=== PATIENT | male | born 1940 | race American Indian/Alaskan Native ===

== ENCOUNTER 2017-11-03 11:44 | Inpatient (IN) | payer MEDICARE ==
[2017-11-03 13:11] LABS: Basophils % (Auto) 0.4 % (0.0-1.8); Eosinophils # (Auto) 0.1 K/mm3 (0.0-0.4); Eosinophils % (Auto) 0.9 % (0.0-4.3); Hemoglobin 13.6 gm/dl (11.8-15.2); Lymphocytes # (Auto) 1.8 K/mm3 (1.2-5.4); Lymphocytes % (Auto) 23.9 % (13.4-35.0); Mean Corpuscular HGB Conc 34 % (32-34); Mean Corpuscular Hemoglobin 31 pg (28-32); Mean Corpuscular Volume 91 fl (84-94); Monocytes # (Auto) 0.5 K/mm3 (0.0-0.8); Monocytes % (Auto) 6.8 % (0.0-7.3); Platelet Count 228 K/mm3 (140-440); Red Blood Count 4.42 M/mm3 (3.65-5.03); Red Cell Distribution Width 13.7 % (13.2-15.2)
[2017-11-03 13:20] LABS: BUN/Creatinine Ratio 16; Blood Urea Nitrogen 13 mg/dL (9-20); Calcium 8.3 mg/dL (8.4-10.2); Hemolysis Index 13
--- NOTE | 2017-11-03 15:11 | Emergency Department Report ---
ED Chest Pain HPI - General Chief Complaint: Chest Pain Stated Complaint: CHEST PAIN Time Seen by Provider: 11/03/17 14:45 Source: patient, EMS Mode of arrival: Stretcher Limitations: Other - History of Present Illness Initial Comments: According to the patient, he is having intermittent left-sided chest pain that is improving. He states this happens when he gets stressed. History of having a heart attack. According to chart review, patient is brought in by EMS after police Hold him over for speeding. While stopped by the police, patient started having chest pain. History is limited by the patient's poor hearing. Onset: during rest Pain Location: left chest Pain Radiation: none Quality: sharp Consistency: intermittent - Related Data Home Medications Medication Instructions Recorded Confirmed Last Taken No Known Home Medications [No 11/03/17 11/03/17 Unknown Reported Home Medications] Allergies Allergy/AdvReac Type Severity Reaction Status Date / Time No Known Allergies Allergy Unverified 11/03/17 12:19 Heart Score - HEART Score History: Moderately suspicious EKG: Non-specific Age: > 65 Risk factors: No known risk factors Troponin: < normal limit HEART Score: 4 ED Review of Systems ROS: Stated complaint: CHEST PAIN Other details as noted in HPI Constitutional: denies: chills, fever Eyes: denies: eye pain, eye discharge, vision change Respiratory: cough, SOB at rest. denies: shortness of breath, wheezing Cardiovascular: chest pain Gastrointestinal: denies: abdominal pain, nausea, diarrhea ED Past Medical Hx - Social History Smoking Status: Former Smoker - Medications Home Medications: Home Medications Medication Instructions Recorded Confirmed Last Taken Type No Known Home Medications [No 11/03/17 11/03/17 Unknown History Reported Home Medications] ED Physical Exam - General Limitations: Other (extremely hard of hearing) - Head Head exam: Present: atraumatic, normocephalic - Eye Eye exam: Present: normal appearance - Respiratory Respiratory exam: Present: normal lung sounds bilaterally. Absent: respiratory distress - Cardiovascular Cardiovascular Exam: Present: regular rate, normal rhythm. Absent: systolic murmur, diastolic murmur, rubs, gallop - GI/Abdominal GI/Abdominal exam: Present: soft, normal bowel sounds - Extremities Exam Extremities exam: Present: normal inspection - Neurological Exam Neurological exam: Present: alert, oriented X3 - Psychiatric Psychiatric exam: Present: normal affect, normal mood - Skin Skin exam: Present: warm, dry, intact, normal color ED Course Vital Signs 11/03/17 11/03/17 11/03/17 12:24 12:30 12:45 Temperature Pulse Rate 59 L 58 L 57 L Respiratory 18 13 18 Rate Blood Pressure 128/58 136/55 Blood Pressure [Left] O2 Sat by Pulse 98 97 98 Oximetry 11/03/17 11/03/17 11/03/17 13:01 13:06 13:07 Temperature 98.0 F Pulse Rate 69 Respiratory 12 18 Rate Blood Pressure 159/81 Blood Pressure [Left] O2 Sat by Pulse 97 98 Oximetry 11/03/17 11/03/17 11/03/17 13:15 13:31 13:45 Temperature Pulse Rate 60 58 L 58 L Respiratory 17 17 12 Rate Blood Pressure 128/58 128/58 159/81 Blood Pressure [Left] O2 Sat by Pulse 98 97 98 Oximetry 11/03/17 11/03/17 11/03/17 14:00 14:15 14:30 Temperature Pulse Rate 56 L 58 L 56 L Respiratory 14 14 11 L Rate Blood Pressure 123/56 128/58 119/52 Blood Pressure [Left] O2 Sat by Pulse 97 98 95 Oximetry 11/03/17 11/03/17 11/03/17 14:45 15:00 15:15 Temperature Pulse Rate 65 55 L 59 L Respiratory 12 15 18 Rate Blood Pressure 123/56 137/65 137/65 Blood Pressure [Left] O2 Sat by Pulse 98 99 99 Oximetry 11/03/17 11/03/17 11/03/17 15:43 15:45 16:00 Temperature Pulse Rate 57 L 56 L Respiratory 15 16 Rate Blood Pressure 137/65 130/59 130/59 Blood Pressure [Left] O2 Sat by Pulse 99 99 99 Oximetry 11/03/17 11/03/17 11/03/17 16:15 16:30 16:45 Temperature Pulse Rate 64 58 L 57 L Respiratory 15 14 17 Rate Blood Pressure 137/65 133/63 133/63 Blood Pressure [Left] O2 Sat by Pulse 99 99 99 Oximetry 11/03/17 11/03/17 17:00 17:15 Temperature Pulse Rate 55 L 57 L Respiratory 15 16 Rate Blood Pressure 135/60 135/60 Blood Pressure 135/60 [Left] O2 Sat by Pulse 100 100 Oximetry ED Medical Decision Making - Lab Data Result diagrams: 11/03/17 16:40 11/03/17 16:40 - EKG Data -: EKG Interpreted by Me - EKG Data When compared to previous EKG there are: previous EKG unavailable - Radiology Data Radiology results: report reviewed, image reviewed - Medical Decision Making 77-year-old male with unknown medical history that presents with an ring chest pain. Presentation is concerning for unstable angina. Patient has a moderate risk by heart score. EKG and troponin were unremarkable. History obtained from daughter shows worsening pattern of chest pain for the past 2 months that is intermittent and associated with shortness of breath. I believe the patient would benefit from further cardiac evaluation. He'll be admitted for further management. - Differential Diagnosis ACS, pe, arrhythmia, pna, bronchitis, gerd, TAA, pericarditis, costochondri Critical care attestation.: If time is entered above; I have spent that time in minutes in the direct care of this critically ill patient, excluding procedure time. ED Disposition Clinical Impression: Unstable angina Disposition: DC-[id number] OP ADMIT IP TO THIS HOSP Is pt being admited?: Yes Does the pt Need Aspirin: No Condition: Stable
--- NOTE | 2017-11-03 16:02 | XRay Report ---
FINAL REPORT EXAM: XR CHEST ROUTINE 2V HISTORY: chest pain TECHNIQUE: PA and lateral views of the chest PRIORS: None. FINDINGS: Lines, tubes, and devices: N/A Lungs and pleura: Trachea is normal in position. Lungs are clear of infiltrate, pleural effusion, vascular congestion, or pneumothorax. Cardiomediastinal silhouette: Cardiac and mediastinal silhouettes are unremarkable. Other: Bony structures are intact. IMPRESSION: No acute cardiopulmonary process seen.
--- NOTE | 2017-11-03 16:31 | History and Physical Report ---
History of Present Illness Chief complaint: I have pain in my chest History of present illness: 77 YO Male with Anxiety presents to ED for evaluation. Pt states that he experienced an acute onset of pain in his chest. Pt was a passenger in an automobile that was stopped by police for speeding. During the traffic stop, the patient experienced acute onset of pain in his chest. EMS was notified and the patient was transported to [facility] for further care and evaluation. Pt states that pain was 6/10, substernal, localized to the left chest, nonradiating, sharp , not worsened with exertion or relieved with rest, and associated with shortness of breath. Pt seen and evaluated in ED and found to have symptoms consistent with ACS. Pt admitted to telemetry. Cardiology consulted in ED. - Past History Past Medical History: other (anxiety) Past Surgical History: No surgical history, Other (reviewed) Social history: single. denies: smoking, alcohol abuse, prescription drug abuse Family history: hypertension Medications and Allergies Allergies Allergy/AdvReac Type Severity Reaction Status Date / Time No Known Allergies Allergy Unverified 11/03/17 12:19 Home Medications Medication Instructions Recorded Confirmed Last Taken Type No Known Home Medications [No 11/03/17 11/03/17 Unknown History Reported Home Medications] Review of Systems Constitutional: no weight loss, no weight gain, no fever, no chills Ears, nose, mouth and throat: no ear pain, no ear discharge, no tinnitis, no decreased hearing Cardiovascular: chest pain, shortness of breath, no palpitations, no rapid/ irregular heart beat, no dyspnea on exertion, no claudication, no high blood pressure, no leg edema Respiratory: no cough, no cough with sputum, no excessive sputum, no hemoptysis Gastrointestinal: no abdominal pain, no nausea, no vomiting, no diarrhea, no constipation Genitourinary Male: no hematuria, no flank pain, no discharge, no urinary frequency, no urinary hesitancy Rectal: no pain, no incontinence, no bleeding Musculoskeletal: no neck stiffness, no neck pain, no shooting arm pain, no arm numbness/tingling, no low back pain, no shooting leg pain Integumentary: no rash, no pruritis, no redness, no sores Neurological: no head injury, no transient paralysis, no paralysis, no weakness , no parathesias, no numbness Psychiatric: no anxiety, no memory loss, no change in sleep habits, no sleep disturbances, no insomnia, no hypersomnia Endocrine: no cold intolerance, no heat intolerance, no polyphagia, no excessive thirst, no polydipsia, no polyuria, no nocturia Hematologic/Lymphatic: no easy bruising, no easy bleeding, no lymphadenopathy, no lymphedema Allergic/Immunologic: no urticaria, no allergic rhinitis, no wheezing, no persistent infections, no anaphylaxis Exam - Constitutional Vitals: Temp Pulse Resp BP Pulse Ox 98.0 F 58 L 18 128/58 98 11/03/17 13:06 11/03/17 12:30 11/03/17 13:07 11/03/17 12:30 11/03/17 13:07 General appearance: Present: cachectic - EENT Eyes: Present: PERRL ENT: hearing intact, clear oral mucosa - Neck Neck: Present: supple, normal ROM - Respiratory Respiratory effort: normal Respiratory: bilateral: CTA - Cardiovascular Heart Sounds: Present: S1 & S2. Absent: rub, click - Extremities Extremities: pulses symmetrical, No edema Peripheral Pulses: within normal limits - Abdominal General gastrointestinal: Present: soft, non-tender, non-distended, normal bowel sounds Male genitourinary: Present: normal - Integumentary Integumentary: Present: clear, warm, dry - Musculoskeletal Musculoskeletal: gait normal, strength equal bilaterally - Psychiatric Psychiatric: appropriate mood/affect, intact judgment & insight - Neurologic Neurologic: CNII-XII intact, moves all extremities Results - Labs CBC & Chem 7: 11/03/17 16:40 11/03/17 16:40 Labs: Abnormal lab results 11/03/17 Range/Units 12:42 Calcium 8.3 L (8.4-10.2) mg/dL Assessment and Plan - Patient Problems (1) ACS (acute coronary syndrome) Current Visit: Yes Status: Acute Plan to address problem: Admit to telemetry, serial cardiac enzymes, ekg, telemetry, echo, stress test, morphine, supplemental oxygen, lipid panel, nitro, aspirin, cardiology consulted in ED. (2) Diastolic CHF Current Visit: Yes Status: Suspected Qualifiers: Congestive heart failure chronicity: acute Qualified Code(s): I50.31 - Acute diastolic (congestive) heart failure Plan to address problem: Suspected Diastolic CHF: Admit to telemetry, Fluid restriction, monitor uop q shift, Echo, supplemental oxygen, afterload reduction, serial cardiac enzymes. (3) DVT prophylaxis Current Visit: Yes Status: Acute
[2017-11-03] MEDS ORDERED: NITROSTAT SL PRN (16:32)
[2017-11-03] MEDS ORDERED: MORPHINE IV PRN ×2 (16:32→17:07)
[2017-11-03] MEDS ORDERED: ZOFRAN IV PRN (16:32)
[2017-11-03] MEDS ORDERED: PROVENTIL IH PRN (16:32)
[2017-11-03] MEDS ORDERED: SODIUM CHLORIDE FLUSH SYRINGE 10 ML IV PRN (16:32)
[2017-11-03] MEDS ORDERED: TYLENOL PO PRN (16:32)
[2017-11-03] MEDS ORDERED: BABY ASPIRIN PO STA (16:32)
[2017-11-03 17:03] LABS: Basophils # (Auto) 0.1 K/mm3 (0.0-0.1); Basophils % (Auto) 0.8 % (0.0-1.8); Eosinophils # (Auto) 0.1 K/mm3 (0.0-0.4); Eosinophils % (Auto) 1.1 % (0.0-4.3); Hematocrit 41.7 % (35.5-45.6); Hemoglobin 13.9 gm/dl (11.8-15.2); Lymphocytes # (Auto) 2.6 K/mm3 (1.2-5.4); Mean Corpuscular HGB Conc 33 % (32-34); Mean Corpuscular Hemoglobin 31 pg (28-32); Mean Corpuscular Volume 92 fl (84-94); Monocytes # (Auto) 0.8 K/mm3 (0.0-0.8); Monocytes % (Auto) 9.3 % (0.0-7.3); Platelet Count 224 K/mm3 (140-440); Red Blood Count 4.54 M/mm3 (3.65-5.03); Red Cell Distribution Width 13.8 % (13.2-15.2)
[2017-11-03 17:13] LABS: BUN/Creatinine Ratio 17; Blood Urea Nitrogen 12 mg/dL (9-20); Calcium 8.5 mg/dL (8.4-10.2); Hemolysis Index 69
[2017-11-03] MEDS ORDERED: BABY ASPIRIN ONE (17:25)
[2017-11-03 17:41] LABS: Chol/HDL Ratio 4.17 %
[2017-11-04] MEDS ORDERED: LEXISCAN IV ONE ×2 (08:49→09:10)
[2017-11-04 09:35] VITALS: BP 101/51
--- NOTE | 2017-11-04 12:33 | Consultation ---
History of Present Illness Consult date: 11/04/17 Consult reason: chest pain History of present illness: 77 year old male very had of hearing presenting with ? chest pain. ECG showing SR with no ischemic changes. Cardiac enzymes are negative. MPI is normal. Echo showing normal LVEF. Past History Past Medical History: other (anxiety) Past Surgical History: No surgical history, Other (reviewed) Social history: single. denies: smoking, alcohol abuse, prescription drug abuse Family history: hypertension Medications and Allergies Allergies Allergy/AdvReac Type Severity Reaction Status Date / Time No Known Allergies Allergy Unverified 11/03/17 12:19 Home Medications Medication Instructions Recorded Confirmed Last Taken Type No Known Home Medications [No 11/03/17 11/03/17 Unknown History Reported Home Medications] Active Meds: Active Medications Acetaminophen (Tylenol) 650 mg PO Q4H PRN PRN Reason: Pain MILD(1-3)/Fever >100.5/CALVERT Albuterol (Proventil) 2.5 mg IH Q4HRT PRN PRN Reason: Shortness Of Breath Morphine Sulfate (Morphine) 2 mg IV Q4H PRN PRN Reason: Pain , Severe (7-10) Nitroglycerin (Nitrostat) 0.4 mg SL Q5M PRN PRN Reason: Chest Pain Ondansetron HCl (Zofran) 4 mg IV Q8H PRN PRN Reason: N/V unrelieved by Reglan Sodium Chloride (Sodium Chloride Flush Syringe 10 Ml) 10 ml IV PRN PRN PRN Reason: LINE FLUSH Review of Systems ROS unobtainable: due to mental status Physical Examination Vital Signs Pulse Resp Pulse Ox 59 L 18 98 11/03/17 12:24 11/03/17 12:24 11/03/17 12:24 General appearance: no acute distress HEENT: Positive: PERRL Neck: Positive: neck supple Cardiac: Positive: Reg Rate and Rhythm Lungs: Positive: Normal Exam Abdomen: Positive: Soft Extremities: Absent: edema Results 11/03/17 16:40 11/03/17 16:40 Lipids 11/03/17 Range/Units 16:40 Triglycerides 71 (2-149) mg/dL Cholesterol 188 (50-199) mg/dL HDL Cholesterol 45 (40-59) mg/dL Cholesterol/HDL Ratio 4.17 % CBC 11/03/17 11/03/17 Range/Units 12:42 16:40 WBC 7.4 8.7 (4.5-11.0) K/mm3 RBC 4.42 4.54 (3.65-5.03) M/mm3 Hgb 13.6 13.9 (11.8-15.2) gm/dl Hct 40.0 41.7 (35.5-45.6) % Plt Count 228 224 (140-440) K/mm3 Lymph # 1.8 2.6 (1.2-5.4) K/mm3 [place] # 0.5 0.8 (0.0-0.8) K/mm3 Eos # 0.1 0.1 (0.0-0.4) K/mm3 Baso # 0.0 0.1 (0.0-0.1) K/mm3 Comprehensive Metabolic Panel 11/03/17 11/03/17 Range/Units 12:42 16:40 Sodium 140 137 (137-145) mmol/L Potassium 4.1 4.4 (3.6-5.0) mmol/L Chloride 102.4 102.5 (98-107) mmol/L Carbon Dioxide 23 21 L (22-30) mmol/L BUN 13 12 (9-20) mg/dL Creatinine 0.8 0.7 L (0.8-1.5) mg/dL Glucose 95 86 (75-100) mg/dL Calcium 8.3 L 8.5 (8.4-10.2) mg/dL EKG interpretations - Telemetry EKG Rhythm: Sinus Rhythm Assessment and Plan ? Chest Pain Normal MPI Normal LVEF Hearing Impaired No further cardiac intervention needed
--- NOTE | 2017-11-04 14:53 | Discharge Summary ---
Providers - Providers Date of Admission: 11/03/17 16:32 Attending physician: CARLOS BEAR MD 11/03/17 Consult to Cardiac Rehabilitation [CONS] Routine Reason For Exam: Phase I 11/03/17 16:32 Consult to Cardiology [CONS] Routine Consulting Provider: JENNIFER BARROS Reason For Exam: acs Primary care physician: [employer] Hospitalization Reason for admission: CHEST PAIN Condition: Stable Hospital course: 77 YO Male with Anxiety presents to ED for evaluation. Pt states that he experienced an acute onset of pain in his chest. Pt was a passenger in an automobile that was stopped by police for speeding. During the traffic stop, the patient experienced acute onset of pain in his chest. EMS was notified and the patient was transported to [facility] for further care and evaluation. Pt states that pain was 6/10, substernal, localized to the left chest, nonradiating, sharp , not worsened with exertion or relieved with rest, and associated with shortness of breath. Pt seen and evaluated in ED and admitted for stress test which was negative and patient was evaluated by cardiology and recommended no further work up. Patient is stable for discharge and wants to go home. He is currently chest pain-free Discharge diagnosis Atypical chest pain likely secondary to anxiety Hard of hearing Anxiety Stable diastolic Heart failure Disposition: - TO HOME OR SELFCARE Time spent for discharge: 35 MINS Core Measure Documentation - Palliative Care Palliative Care/ Comfort Measures: Not Applicable - Core Measures Any of the following diagnoses?: none - VTE Discharge Requirements Deep Vein Thrombosis/Pulmonary Embolism Present on Admission: No Exam - Physical Exam Narrative exam: VITAL SIGNS: Reviewed. GENERAL: The patient appeared well nourished and normally developed. Vital signs as documented. HEAD: No signs of head trauma. EYES: Pupils are equal. Extraocular motions intact. EARS: Hard of hearing MOUTH: Oropharynx is normal. NECK: No adenopathy, no JVD. CHEST: Chest with clear breath sounds bilaterally. No wheezes, rales, or rhonchi. CARDIAC: Regular rate and rhythm. S1 and S2, without murmurs, gallops, or rubs. VASCULAR: No Edema. Peripheral pulses normal and equal in all extremities. ABDOMEN: Soft, without detectable tenderness. No sign of distention. No rebound or guarding, and no masses palpated. Bowel Sounds normal. Chronic suprapubic Hammonds to leg bag MUSCULOSKELETAL: Good range of motion of all major joints. Extremities without clubbing, cyanosis or edema. NEUROLOGIC EXAM: Alert and oriented x 3. No focal sensory or strength deficits. Speech normal. Follows commands. PSYCHIATRIC: Mood normal. SKIN: No rash or lesions. - Constitutional Vitals: Temp Pulse Resp BP Pulse Ox 97.7 F 77 12 101/51 99 11/04/17 07:39 11/04/17 09:12 11/04/17 07:39 11/04/17 09:12 11/04/17 07:39 Plan Activity: advance as tolerated, fall precautions Diet: low fat, low cholesterol Special Instructions: record daily BP diary Additional Instructions: Continue current medications Follow up with: PRIMARY CARE, [Primary Care Provider] - 7 Days
--- NOTE | 2017-11-04 21:15 | Treadmill Report ---
INDICATION: Chest pain. ORDERING PHYSICIAN: Dr. Serrano. FINDINGS: There is no scintigraphic evidence of myocardial ischemia. The left ventricle is normal in size and systolic function. The left ventricular ejection fraction is measured at 67% with normal wall motion and wall thickening on gated imaging. CONCLUSION: Normal perfusion scan. JOB# [id number] JESUS/NTS
== END 2017-11-04 20:00 | disposition home or self-care (01) | DRG 880 ==
LOC: ED 11:44 → 2B-ACE 16:32 → 4A 19:16
PROVIDERS: ADMIT Internal Medicine; ATTEND Internal Medicine
DX: F41.9 Anxiety disorder, unspecified (principal); I50.30 Unspecified diastolic (congestive) heart failure; Z82.49 Family history of ischemic heart disease and other diseases of the circulatory system
CPT/HCPCS: 36415; 71046; 78452; 80048; 80061; 84484; 85025; 93005; 93010; 93017; 93306; A9502; J2785